=== PATIENT | female | born 1975 | race African-American/Black ===

== ENCOUNTER 2019-11-08 18:18 | Emergency (ER) | payer OTHER ==
[~2019-11-08] VITALS: Ht 167.6 cm; Wt 83.9 kg
[2019-11-08 18:36] VITALS: BP 150/96
[2019-11-08] MEDS: IBUPROFEN 800 MG TAB PO ONE (18:36)
== END 2019-11-08 23:03 | disposition home or self-care (01) ==
LOC: ER 18:21
DX: J40 Bronchitis, not specified as acute or chronic (principal)